=== PATIENT | male | born 1950 | race Two or more races ===

== ENCOUNTER 2019-01-21 14:49 | Outpatient (CLI) | payer MEDICAID ==
[~2019-01-21] VITALS: Ht 167.6 cm; Wt 96.6 kg
[2019-01-21 15:00] VITALS: BP 120/73
--- NOTE | 2019-01-22 03:45 | Consultation ---
DATE OF CONSULTATION: 01/21/2019 CONSULTING PHYSICIAN: Alton Rothman M.D. CHIEF COMPLAINT: positive. HISTORY OF PRESENT ILLNESS: This is a 68-year-old male with prior history of colonoscopy OB positive. PAST MEDICAL HISTORY: Depression. PAST SURGICAL HISTORY: . MEDICATIONS: Please see medication reconciliation list. FAMILY HISTORY: Mother had liver cancer. SOCIAL HISTORY: The patient denies any alcohol, but he smokes 5 to 7 cigarettes per day. No IV drug abuse. ALLERGIES: No known allergies. REVIEW OF SYSTEMS: A 10-point review of systems was performed and pertinent positives in HPI. PHYSICAL EXAMINATION: VITAL SIGNS: Temperature 98.7, blood pressure 120/74, pulse 77, and respirations 20. HEENT: Normocephalic and atraumatic. Sclerae anicteric. NECK: Supple. No evidence of obvious lymphadenopathy. CARDIOVASCULAR: Regular rate and rhythm. Plus S1 and S2. No obvious murmur. LUNGS: Clear to auscultation bilaterally. ABDOMEN: Positive bowel sounds. Soft and nontender. No rebound. No guarding. No peritoneal sign. EXTREMITIES: No cyanosis. No clubbing. No edema. ASSESSMENT AND PLAN: This is a 68-year-old male with positive stool OB, needs an endoscopy and colonoscopy. Plan to get authorization from the insurance and schedule him. Meanwhile, the patient was given instruction for colonoscopy. The risks and benefits of procedure was explained to him and we are pending for authorization. Alton Rothman M.D. DR: HINA JOB#: [id number] CC:
[2019-01-22] MEDS ORDERED: ACETAMINOPHEN325 M1 ORAL (15:44)
[2019-01-22] MEDS ORDERED: TRAZODONE HCL50 MG ORAL (15:44)
[2019-01-22] MEDS ORDERED: ADDERAL20 MG ORAL (15:44)
[2019-01-22] MEDS ORDERED: IBUPROFEN600 MG ORAL (15:44)
[2019-01-22] MEDS ORDERED: ABILIFY10 MG ORAL (15:44)
[2019-01-22] MEDS ORDERED: ASPIRIN EC81 MG ORAL (15:44)
== END 2019-01-21 15:53 | disposition home or self-care (01) ==
LOC: PAN 14:49
DX: R19.5 Other fecal abnormalities (principal)
CPT/HCPCS: G0463

== ENCOUNTER 2019-04-22 13:28 | Outpatient (CLI) | payer MEDICAID ==
[~2019-04-22 13:28] MED LIST: ABILIFY10 MG ORAL; ACETAMINOPHEN325 M1 ORAL; ADDERAL20 MG ORAL; ASPIRIN EC81 MG ORAL; IBUPROFEN600 MG ORAL; TRAZODONE HCL50 MG ORAL
[2019-04-22 13:51] VITALS: BP 135/71
[2019-04-22] MEDS ORDERED: SEROQUEL100 MG ORAL (13:54)
--- NOTE | 2019-04-22 14:05 | General Progress Note ---
Assessment/Plan Assessment/Plan: HP positive gastritis 2 colon polyps repeat colon in 5 years treat for HP RTC 3 months Subjective ROS Limited/Unobtainable: Yes Allergies: Coded Allergies: No Known Allergies (Unverified , 01/22/19) Objective Last 24 Hour Vital Signs Date Time Temp Pulse Resp B/P (MAP) Pulse Ox O2 Delivery O2 Flow Rate FiO2 04/22/19 13:51 16 135/71 (92) 95 General Appearance: alert EENT: normal ENT inspection Neck: supple Cardiovascular: normal rate Respiratory/Chest: lungs clear Abdomen: normal bowel sounds, non tender, soft Extremities: non-tender Alton Rothman MD Apr 22, 2019 14:05
== END 2019-04-22 16:20 | disposition home or self-care (01) ==
LOC: PAN 13:28
DX: K29.70 Gastritis, unspecified, without bleeding (principal); B96.81 Helicobacter pylori [H. pylori] as the cause of diseases classified elsewhere; K63.5 Polyp of colon
CPT/HCPCS: 99212